=== PATIENT | female | born 2000 | race Hispanic/Latino ===

== ENCOUNTER 2020-04-05 20:43 | Inpatient (IN) | payer OTHER, SELFPAY ==
[2020-04-05] MEDS ORDERED: Famotidine/PF 20 mg/2ml Vial SLOW IVP PRN (21:41)
[2020-04-05] MEDS ORDERED: Bicitra 30 ML UDCUP PO PRN (21:41)
[2020-04-05] MEDS ORDERED: Ondansetron PF 4 MG/2 ML Vial IVP PRN (21:41)
[2020-04-05] MEDS ORDERED: Promethazine HCl 25 MG/ML VIAL IM PRN (21:41)
[2020-04-05] MEDS ORDERED: Meperidine HCl/PF 25 MG/ML VIAL IM/IV PRN (21:41)
[2020-04-05] MEDS ORDERED: Docusate 100 MG CAP PO PRN (21:41)
[2020-04-05] MEDS ORDERED: hydrALAZINE 20 MG/ML VIAL SLOW IVP PRN (21:41)
[2020-04-05] MEDS ORDERED: Butorphanol Tartrate 1 MG/ML VIAL SLOW IVP PRN (21:41)
[2020-04-05] MEDS ORDERED: Acetaminophen 500 MG TAB PO PRN (21:41)
[2020-04-05] MEDS ORDERED: CEFAZOLIN 2 GM in Premix Bag 1 BAG IVPB SCH ×2 (21:45→21:49)
[2020-04-05 22:00] VITALS: BMI 29.0
--- NOTE | 2020-04-05 22:04 | PDOC.FPROB ---
FMR OB H&P: HPI - History of Present Illness Chief Complaint: oligohydramnios History of Present Illness: Pt is a 19 yo F at 36 wks by a 8 wk sono who presents from appointment today with MFM for oligohydramnios with an VINOD of 2.7. Pt denies any leaking of fluid, VB, VD, regular contractions. Endorses good movement. Patient was noted to be breech at her appointment. 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 and obesity in Primary Care Physician: NAOMI Ludwig FMR OB H&P: Current - Care : 1 Para: 0 Gestational age: 36wks Due date: 05/03/20 Dating Criteria: 8 wk sono Course/Complications: VINOD 2.7, breech, White Class B on Metformin 1000mg BID, obesity in , elevated LFTs, growth restriction- stable, [place] 16 - OB Labs Blood type: A RH: positive Antibody Screen: negative HIV: negative RPR: negative HepBsAg: negative Rubella: immune Gonorrhea: negative Chlamydia: negative A1c: 5.6% most recent GBS: positive - Additional Ultrasound Additional: Most recent sono results not available as was done earlier today with MFM FMR OB H&P: History - Past Medical History PMH: pre gestational diabetes on Metformin - OB History OB History: G1 VINOD 2.7: oligo breech White Class B on Metformin 1000mg BID obesity in growth restriction on previous sono (not most recent, see above)- stable, [place] 16% - GRAN[facility] CUTTER History GR[facility] CUTTER History: LMP 07/16/19 denies hx of STDs - Surgical History Sx History: denies - Social History Social History: denies - Family History Family History: non contributory as per patient FMR OB H&P: Medications - Current Home Medications: Medication Instructions Recorded Confirmed Type Pnv No.95/Ferrous Fum/Folic AC 1 each PO 04/05/20 History [ [place]] metFORMIN HCl 1,000 mg PO BID-WM 04/05/20 04/05/20 History Allergies/Adverse Reactions: Allergies Allergy/AdvReac Type Severity Reaction Status Date / Time No Known Allergies Allergy Verified 04/05/20 22:59 FMR OB H&P: ROS - Review of Systems General: denies: fever/chills, weight/appetite/sleep changes Eyes: denies: vision changes, double vision Cardiovascular: denies: chest pain, palpitation, edema Respiratory: denies: cough, shortness of breath Gastrointestinal: denies: abdominal pain, nausea, vomiting Genitourinary (Female): denies: dysuria, vaginal discharge, vaginal pain, vaginal bleeding, contractions, vaginal pressure Neurologic: denies: weakness, loss of counsciousness, headache Integumentary: denies: rash FMR OB H&P: Vital Signs - Heart Tones Baseline: 140 Variability: moderate Acceleration: present Deceleration: absent Category: category 1 [place] contractions every: irritability FMR OB H&P: Physical Exam - Physical Exam General: NAD, awake, alert and oriented HEENT: normocephalic and atraumatic, EOMI, conjunctiva clear, grossly normal vision, grossly normal hearing Neck: supple Chest: non-tender to palpation Heart: RRR, normal S1/S2 General: CTAB, no respiratory distress Abdomen: soft, gravid Musculoskeletal: pulses present, FROM in all four extremities Neurological: cranial nerves II through XII intact Skin: no rash, good tugor Lymphatic: no unusual bruising or bleeding Psychiatric: intact recent and remote memory, good judgement and insight - Pelvic Exam Membranes: intact Presentation: breech FMR OB H&P: A/P Disposition: Pt is a 19 yo F at 36 wks by a 8 wk sono who presents from appointment today with [facility] for oligohydramnios with an VINOD of 2.7. #Oligohydramnios -VINOD of 2.7 at [facility] appointment today -follow up with official report from appointment -continuous monitoring -q4H check of strip until c section -plan for c section tomorrow morning #White Class B Diabetic -hold morning Metformin -ACCU check in AM -continue ACCU checks fasting and 2 hr PP Discussion: Date/Time: 04/05/202203 This H&P was discussed with Dr. Veronica and Dr. Hoffman who agree with the above documentation and plan. Addendum - Attending - Attending Attestation Date/Time: 04/05/20 2807 I personally evaluated the patient and discussed the management with Dr. Luo I agree with the History, Examination, Assessment and Plan documented above with any addition or exceptions noted below. Admit for monitoring and delivery. complicated by pre-gestation White Class B DM, oligohydraminos, and growth restriction. Breech presentation. Unable to perform ECV. Due to late gestation and lack of 48 hour timing will hold FLM steroids 2/2 John as well as maternal DM history. PLTCS scheduled for AM. Juan
[2020-04-05 22:33] LABS: #Eosinphils 0.1 thou/uL (0.0-0.7); #Lymphocytes 1.4 thou/uL (1.20-3.40); #Monocytes 0.5 thou/uL (0.11-0.59); #Neutrophils 6.9 thou/uL (1.40-6.50); %Basophils 0.5 % (0.0-1.0); %Eosinophils 0.7 % (0.0-10.0); %Lymphocytes 16.1 % (28.0-48.0); %Monocytes 5.5 % (0.0-4.0); %Neutrophils 77.2 % (31.0-61.0); Hemoglobin 13.1 g/dL (12.0-16.0); Mean Corpuscular HGB CONC 33.9 g/dL (32.0-36.0); Mean Corpuscular Hemoglobin 29.4 pg (25.0-35.0); Mean Corpuscular Volume 86.7 fL (78.0-98.0); Mean Platelet Volume 9.7 fL (7.4-10.4); Platelet Count 278 thou/uL (130-400); Red Blood Cell (RBC) Count 4.45 mill/uL (4.00-5.20)
[2020-04-05 22:55] LABS: ALT (SGPT) 53 U/L (8-55); AST (SGOT) 22 U/L (5-30); Albumin 3.6 g/dL (3.5-5.0); Alkaline Phosphatase 177 U/L (40-100); Anion Gap 20 mmol/L (10-20); BUN (Urea Nitrogen) 7 mg/dL (8.4-21.0); Bilirubin, Total 0.3 mg/dL (0.2-1.2); Calc. Creatinine Clearance 166 mL/min (70-130); Calcium 9.2 mg/dL (7.8-10.44); Carbon Dioxide 20 mmol/L (22-29); Chloride 104 mmol/L (98-107); Globulin 3.6 g/dL (2.4-3.5); Glucose 77 mg/dL (70-105); Potassium 3.7 mmol/L (3.5-5.1); Protein, Total 7.2 g/dL (6.0-8.3); Sodium 140 mmol/L (136-145)
[2020-04-05 23:13] LABS: Syphilis Antibody Nonreactive (Nonreactive); Syphilis Antibody Index 0.04 S/CO (<1.00 Non-Reactive)
[2020-04-05] MEDS ORDERED: Lidocaine 1% (PF) 30 ML VIAL ONE (23:40)
[2020-04-05] MEDS ORDERED: Misoprostol 200 MCG TAB ONE (23:41)
[2020-04-05] MEDS ORDERED: Lactated Ringer's 1,000 ML IV SCH (23:45)
[2020-04-05 23:51] LABS: HBSAg Index 0.22 S/CO (0-0.99); Hep B Surf Ag Non-Reactive S/CO (NonReactive)
[2020-04-06 00:02] LABS: Creatinine, Urine 57.73 mg/dL (47-110); Protein, Urine Random Quant Less than 10 mg/dL (1-14)
[2020-04-06] MEDS: Lactated Ringer's 1,000 ML IV SCH (00:03)
--- NOTE | 2020-04-06 00:52 | PDOC.BPN ---
- Brief Progress Note Encounter Date: 04/06/20 Encounter Time: 12:30 Patient doing well, resting comfortably. Strip reviewed: cat 1 strip baseline at 140 bpm with + accels and moderate variability. [place] showed variability. Have not been able to review most updated note from [facility] visit yesterday as it is not updated in patient's chart yet. Pre-E labs negative. Will hold AM Metformin and ACCU check in AM. Plan for c section later this morning Continue monitoring. Plan discussed with Dr. Hoffman.
--- NOTE | 2020-04-06 03:44 | PDOC.BPN ---
- Brief Progress Note Encounter Date: 04/06/20 Encounter Time: 03:45 Patient doing well, resting comfortably. Strip reviewed: cat 1 strip baseline at 140 bpm with + accels and moderate variability. [place] showed irritability. Endorses movement, no LOF/VB/VD. Plan for c section later this morning. Continue monitoring. Plan discussed with Dr. Hoffman.
[2020-04-06 06:56] LABS: SARS-CoV-2 MS2 Positive; SARS-CoV-2 N Gene Positive; SARS-CoV-2 S Gene Positive; SARS-CoV-2 by NAA DETECTED (NotDetected); SARS-CoV-2 orf1ab Positive
--- NOTE | 2020-04-06 07:27 | PDOC.BPN ---
- Brief Progress Note Encounter Date: 04/06/20 Encounter Time: 07:05 FHT reviewed: Cat 1 strip, moderate variability, accels present, baseline 135 Krebs, no cxns seen Reassuring strip. Plan for within in the next hour. Of note, pt was incidentally found to be COVID + upon admission screening. Will place precaut ions for duration of stay.
[2020-04-06] MEDS ORDERED: Ondansetron PF 4 MG/2 ML Vial ONE (07:35)
[2020-04-06] MEDS ORDERED: Famotidine/PF 20 mg/2ml Vial ONE (07:35)
[2020-04-06] MEDS ORDERED: Scopolamine 1.5 mg/72 hour Patch ONE (07:36)
--- NOTE | 2020-04-06 07:52 | PDOC.OPDEL ---
OB Operative/Delivery Note Delivery Dr/Surgeon: Oziel Assist: Ashley - Additional Findings/Plan Compilations/Other Findings: Procedure Note Date of Procedure: 04/06/2020 Resident Surgeon: Dr. Era Ludwig MD PGY2 [employer] Manager Surgeon: Dr. Lorne Ramirez DO PGY2 Attending Surgeon: Dr. Coughlin Procedure: Primary low transverse caesarean section Preoperative Diagnosis: 1) 2) White Class B Diabetes Mellitus 3) Obesity 4) Transaminitis 5) growth restriction Postoperative Diagnosis: 1)same as above plus any other findings during surgery Anesthesia: spinal Indications: The patient is a 19 year old G1 Female at 36.1 weeks gestation who presents for a scheduled . Procedure in Detail: After risks, benefits, and alternatives were explained to the patient, she gave informed consent. Pre-operative antibiotics included Cefazolin 2 gram IV. The patient was taken to the operating room and spinal anesthesia was initiated. She was placed in the supine position with a left tilt and prepped and draped in usual sterile fashion. A Pfannenstiel incision was made with a scalpel and carried down to the level of the fascia which was sharply nicked. The fascial cut was extended bilaterally with Velasco sissors. The inferior and superior edges of the cut fascial edges were elevated with Zeke clamps and the underlying rectus muscles were sharply and bluntly dissected free. The recti were divided digitally and retracted manually. The peritoneum was entered with velasco scissors after elevating with hemostats and retracted manually. Bladder blade was placed. A low transverse score was made with the scalpel and the uterus was entered in the midline with the scalpel. Clear fluid was seen. The hysterotomy was extended manually. The infant was noted to be breech and was easily delivered by fundal pressure with breech maneuvers. Mouth and nares were bulb suctioned. Cord clamped and cut and grossly normal male was handed to waiting nurse. Cord blood was obtained. Placenta was manually extracted, found to be intact with 3 vessel cord and discarded. The uterus was externalized and the endometrium was curetted with a dry lap. The bladder blade was replaced and the uterus was closed with a running locking #1 monocryl. Following this hemostasis was noted. The abdomen was suctioned free of clots. The uterus was internalized and the hysterotomy was again noted to be hemostatic. The peritoneum was closed with 2-0 chromic gut. The fascia was closed with a running non-locking 0-PDS suture. The subcutaneous tissue was irrigated and there were no bleeders. The subcutaneous tissue was closed wit 2-0 chromic gut. The skin was approximated with brain and a pressure dressing was placed. All counts were correct. The patient tolerated the procedure well and was taken to the recovery room in stable condition. QBL Pending. Complications: None Specimens: Cord blood sent to lab for blood type. Placenta sent for path. Findings: Grossly normal male with apgars of 8/9. Grossly normal placenta with 3 vessel cord discarded. Drains: Rodas to gravity draining clear urine Antonio SHEPARD PGY2
[2020-04-06] MEDS ORDERED: Morphine PF 10 MG/10 ML VIAL ONE (07:54)
[2020-04-06] MEDS ORDERED: Oxytocin 10 UNITS/ML VIAL ONE ×2 (07:55→08:50)
[2020-04-06] MEDS ORDERED: Promethazine HCl 25 MG/ML VIAL ONE (08:43)
[2020-04-06] MEDS ORDERED: diphenhydrAMINE 50 MG/ML VIAL IVP PRN (09:25)
[2020-04-06] MEDS ORDERED: Meperidine HCl/PF 25 MG/ML VIAL SLOW IVP PRN (09:25)
[2020-04-06] MEDS ORDERED: HYDROmorphone 2 MG/ML VIAL SLOW IVP PRN (09:25)
[2020-04-06] MEDS ORDERED: Naloxone HCl 0.4 mg/ml Vial IVP PRN ×2 (09:25)
[2020-04-06] MEDS ORDERED: Ondansetron HCl/PF 4 MG/2 ML Vial IVP PRN (09:25)
[2020-04-06] MEDS ORDERED: Promethazine HCl 25 MG SUPP PR PRN (09:25)
[2020-04-06] MEDS ORDERED: Ondansetron PF 4 MG/2 ML Vial IVP PRN ×2 (09:25→11:39)
[2020-04-06] MEDS ORDERED: Ketorolac Tromethamine 30 MG/ML VIAL IVP PRN (09:25)
[2020-04-06] MEDS ORDERED: Promethazine HCl 25 MG/ML VIAL IM PRN (09:25)
[2020-04-06] MEDS ORDERED: Naloxone HCl 0.4 mg/ml Vial IV PRN (09:25)
[2020-04-06] MEDS ORDERED: L&D-Morphine 4 MG/ML VIAL SLOW IVP PRN (09:25)
[2020-04-06] MEDS ORDERED: Ketorolac Tromethamine 30 MG/ML VIAL IVP SCH (09:30)
[2020-04-06] MEDS ORDERED: Communication Order-Pharmacy FS SCH (09:30)
[2020-04-06] MEDS ORDERED: Acetaminophen 325 MG TAB PO PRN (11:39)
[2020-04-06] MEDS ORDERED: Lanolin Ointment 7 GM TUBE TOP PRN (11:39)
[2020-04-06] MEDS ORDERED: hydrALAZINE 20 MG/ML VIAL SLOW IVP PRN (11:39)
[2020-04-06] MEDS ORDERED: HYDROcodone/Acetaminophen 5/325 mg Tablet PO PRN (11:39)
[2020-04-06] MEDS ORDERED: Simethicone Chewable 80 MG TAB PO PRN (11:39)
[2020-04-06] MEDS ORDERED: diphenhydrAMINE 25 MG CAP PO PRN (11:39)
--- NOTE | 2020-04-06 12:24 | PDOC.BPN ---
- Brief Progress Note Encounter Date: 04/06/20 Encounter Time: 11:30 Subjective: Doing well, 3 hours s/p . Able to move legs, still no sensation. ad alberto. Denies pain, chest pain, shortness of breath, abdominal pain. Objective: QBL @ time of assessment 433mL. Selected Entries 04/06/20 12:15 Temperature 97.6 F Pulse Rate 69 Blood Pressure 109/61 [Semi-Fowlers] Respiratory 16 Rate O2 Sat by Pulse 98 Oximetry Oxygen Delivery Room Air Method Abdomen soft, non tender, dressing clean and dry. A/P: S/p 04/06 (ppd #0) - routine recovery Class B DM - ACHS accuchecks. Will resume metformin tomorrow. Antonio SHEPARD PGY2
[2020-04-06] MEDS ORDERED: Dextrose 50% Abboject 50 ML SYRINGE SLOW IVP PRN (12:27)
[2020-04-06] MEDS ORDERED: Dextrose 5% in Water 1,000 ML IV PRN (12:27)
[2020-04-06] MEDS: Ibuprofen 800 MG TAB PO SCH ×2 (18:35→21:35)
[2020-04-06] MEDS: Docusate Calcium (SURFAK) 240 MG CAP PO SCH (21:35)
[2020-04-07] MEDS: Ibuprofen 800 MG TAB PO SCH ×3 (05:10→21:15)
--- NOTE | 2020-04-07 06:45 | PDOC.PP ---
Post Progress Note Post Day #: 1 Subjective: Doing well this morning. Pain is well controlled. PO intake tolerated: yes Flatus: yes Ambulation: yes Vital Signs (12 hours) Temp Pulse Resp BP Pulse Ox 04/07/20 04:00 97.8 F 52 L 16 104/53 L 98 04/07/20 00:00 67 18 107/54 L 96 04/06/20 20:00 98.4 F 61 16 115/60 97 Weight Weight 74.389 kg - Physical Examination General: NAD Cardiovascular: no m/r/g, RRR Respiratory: clear to auscultation bilaterally, non-labored breathing Abdominal: + bowel sounds, lochia, no distention, appropriately TTP Extremities: negative homans (B) Skin: CS incision dry & intact, no rash Neurological: no gross focal deficits Psychiatric: A&Ox3, normal affect Result Diagrams: 04/05/20 22:20 04/05/20 22:20 Additional Labs: Post Labs Hep Bs Antigen Non-Reactive S/CO (NonReactive) 04/05/20 22:20 Blood Type A POSITIVE 04/05/20 22:58 (1) delivery, delivered Code(s): O60.10X0 - LABOR W DELIVERY, UNSP TRIMESTER, UNSP S tatus: Acute (2) Oligohydramnios delivered Code(s): O41.00X0 - OLIGOHYDRAMNIOS, UNSP TRIMESTER, NOT APPLICABLE OR UNSP Status: Acute (3) S/P primary low transverse Code(s): Z98.891 - HISTORY OF UTERINE SCAR FROM PREVIOUS SURGERY Status: Acute (4) Pregestational diabetes mellitus, modified White class B Code(s): O24.319 - UNSP PRE-EXISTING DIABETES IN , UNSP TRIMESTER Status: Acute (5) affected by growth restriction Code(s): O36.5990 - MATERN CARE FOR OTH OR SUSP POOR FETL GRTH, UNSP TRI, UNSP Status: Acute - Assessment/Plan day 1, s/p pLTCS - Routine recovery. Scheduled ibuprofen, prn [place]. - Encouraged ambulation today and bonding with baby. - h&h pending this morning. - pp contraception - 1 week f/u @ [facility] Maternal h/o growth restriction and oligohydramnios Pregestational type II DM, Class B diabetes - was on Metformin 500mg BID for 2 months prior to and increased to 1000 mg BID during . - restart metformin 1000 BID today. Will need f/u with PCP outpatient after discharge. Antonio SHEPARD PGY2
[2020-04-07] MEDS: metFORMIN 500 MG TAB PO SCH ×2 (08:10→17:54)
[2020-04-07] MEDS: Prenatal Vitamin 1 TAB PO SCH (08:10)
[2020-04-07] MEDS: Docusate Calcium (SURFAK) 240 MG CAP PO SCH ×2 (08:10→21:16)
[2020-04-07] MEDS: HYDROcodone/Acetaminophen 5/325 mg Tablet PO PRN ×2 (08:11→13:54)
[2020-04-07] MEDS ORDERED: Adacel (T-DAP) 0.5 ML SYRINGE IM ONE (11:39)
[2020-04-07 11:54] LABS: Hemoglobin 10.5 g/dL (12.0-16.0); Mean Corpuscular HGB CONC 33.9 g/dL (32.0-36.0); Mean Corpuscular Hemoglobin 29.4 pg (25.0-35.0); Mean Corpuscular Volume 86.7 fL (78.0-98.0); Mean Platelet Volume 8.4 fL (7.4-10.4); Platelet Count 219 thou/uL (130-400); Red Blood Cell (RBC) Count 3.56 mill/uL (4.00-5.20); White Blood Cell (WBC) Count 6.6 thou/uL (4.8-10.8)
[2020-04-08] MEDS: Ibuprofen 800 MG TAB PO SCH ×2 (05:43→14:39)
--- NOTE | 2020-04-08 07:15 | PDOC.PP ---
Post Progress Note Post Day #: 2 Subjective: Doing well. Breast feeding and pumping. States she isn't getting anything out with pumping. PO intake tolerated: yes Flatus: yes Ambulation: yes Vital Signs (12 hours) Temp Pulse Resp BP BP Pulse Ox 04/08/20 03:20 98.1 F 63 18 116/58 L 97 04/08/20 00:00 97.9 F 62 18 116/62 99 04/07/20 20:00 98.2 F 69 18 119/58 L 100 Weight Weight 74.389 kg - Physical Examination General: NAD Cardiovascular: no m/r/g, RRR Respiratory: clear to auscultation bilaterally, non-labored breathing Abdominal: + bowel sounds, lochia, no distention, appropriately TTP Skin: CS incision dry & intact, no rash Psychiatric: A&Ox3, normal affect Result Diagrams: 04/07/20 11:38 04/05/20 22:20 Additional Labs: Post Labs Hep Bs Antigen Non-Reactive S/CO (NonReactive) 04/05/20 22:20 Blood Type A POSITIVE 04/05/20 22:58 (1) delivery, delivered Code(s): O60.10X0 - LABOR W DELIVERY, UNSP TRIMESTER, UNSP Status: Acute (2) Oligohydramnios delivered Code(s): O41.00X0 - OLIGOHYDRAMNIOS, UNSP TRIMESTER, NOT APPLICABLE OR UNSP Status: Acute (3) S/P primary low transverse Code(s): Z98.891 - HISTORY OF UTERINE SCAR FROM PREVIOUS SURGERY Status: Acute (4) Pregestational diabetes mellitus, modified White class B Code(s): O24.319 - UNSP PRE-EXISTING DIABETES IN , UNSP TRIMESTER Status: Acute (5) affected by growth restriction Code(s): O36.5990 - MATERN CARE FOR OTH OR SUSP POOR FETL GRTH, UNSP TRI, UNSP Status: Acute - Assessment/Plan day 1, s/p pLTCS - Routine recovery. Scheduled ibuprofen, prn [place]. - Encouraged ambulation today and bonding with baby. - h&h stable - pp contraception - unsure. Recommended abstinence for 6 weeks and will discuss at pp visit. - 1 week f/u @ [facility] Maternal h/o growth restriction and oligohydramnios Pregestational type II DM, Class B diabetes - was on Metformin 500mg BID for 2 months prior to and increased to 10 00 mg BID during . - Will resume Metformin 500mg BID on d/c and recommend f/u with PCP in 6 weeks. - Gave information for [facility] as she states she does not have a pcp. Antonio SHEPARD PGY2
[2020-04-08] MEDS: Lactated Ringer's 1,000 ML IV SCH (07:32)
[2020-04-08] MEDS ORDERED: metFORMIN 500 MG TAB PO SCH (08:00)
[2020-04-08 08:12] VITALS: BP 131/66; TEMP 98.6
[2020-04-08] MEDS: Prenatal Vitamin 1 TAB PO SCH (09:31)
[2020-04-08] MEDS: Docusate Calcium (SURFAK) 240 MG CAP PO SCH (09:31)
--- NOTE | 2020-04-11 22:33 | PQF ---
CLINICAL DOCUMENTATION CLARIFICATION FORM: Dear : Malissa Hoffman Date / Time: 04/11/2020 22:32 Please exercise your independent, professional judgment in responding to the clarification form. Clinical indicators are provided on the bottom of this form for your review COVID 19 Clarification and Manifestations: Please check appropriate box(es): A. COVID 19 virus diagnosis Validation: [ x] COVID-19 is ruled in (if so, please provide the evidence used to support this diagnosis) [ ] COVID-19 has been ruled out [ ] Other explanation of clinical findings [ ] Unable to determine Physician Signature: Date/Time: For continuity of documentation, please document condition throughout progress notes and discharge summary. Thank You. To be completed by CDI/Coding staff for physician review: Present Clinical Indicators - Signs / Symptoms / Labs Results and Location in Medical Record [x] Covid+ OB DS 04/05 [x] patient was incidentally found to be Covid+ PN 04/06 [x] Temp=98.5 Pulse=73 Respi=20 EW=525/60 Vital Signs 04/06 [x] WBC: 04/05=9.0 04/07=6.6 Laboratory 04/05 [x] gSARS= detectedh Laboratory 04/05 Present Risk Factors Results and Location in Medical Record [x] 36 weeks gestation HP 04/05 [x] GDM HP 04/05 [x] Obesity HP 04/05 Present Treatments Results and Location in Medical Record [x] Laboratory Monitoring Labs 04/06 [x] IVF JUL 08 [x] Cefazolin 2gm IV JUL 08 CDS/Counter Control Operator Signature: Kelli Rosales Phone #: ext [phone] Date/Time: 04/11/2020 This is a permanent part of the Medical Record [facility]
== END 2020-04-08 15:06 | disposition home or self-care (01) | DRG 786 ==
LOC: L&D 20:43 → 3SW 04-06 11:39
PROVIDERS: ADMIT Family Medicine; ATTEND Family Medicine
PROC: 10D00Z1 Extraction of Products of Conception, Low, Open Approach (ICD-10-PCS; principal; 2020-04-06)
DX: O60.14X0 Preterm labor third trimester with preterm delivery third trimester, not applicable or unspecified (principal); U07.1 COVID-19; O41.03X0 Oligohydramnios, third trimester, not applicable or unspecified; O98.52 Other viral diseases complicating childbirth; Z3A.36 36 weeks gestation of pregnancy; Z37.0 Single live birth; O32.1XX0 Maternal care for breech presentation, not applicable or unspecified; O99.214 Obesity complicating childbirth; E66.9 Obesity, unspecified; O24.425 Gestational diabetes mellitus in childbirth, controlled by oral hypoglycemic drugs; R74.01 Elevation of levels of liver transaminase levels; O26.893 Other specified pregnancy related conditions, third trimester; O36.5930 Maternal care for other known or suspected poor fetal growth, third trimester, not applicable or unspecified
CPT/HCPCS: 36415; 36416; 51702; 80053; 82570; 84156; 85025; 85027; 86780; 86850; 86900; 86901; 87340; 87635; 88307; J0690; J2270; J2405; J2550; S0028; U0003

== ENCOUNTER 2023-01-29 20:54 | Emergency (ER) | payer SELFPAY ==
[2023-01-29] MEDS ORDERED: Insulin Regular 300 UNITS/3 ML VIAL ONE (21:36)
== END 2023-01-29 22:56 | disposition home or self-care (01) ==
LOC: ERS 20:54
DX: E11.65 Type 2 diabetes mellitus with hyperglycemia (principal); Z79.84 Long term (current) use of oral hypoglycemic drugs
CPT/HCPCS: 36416; 96361; 96374; 96376; J1815

== ENCOUNTER 2023-03-27 14:54 | Inpatient (IN) | payer SELFPAY ==
[~2023-03-27 14:54] MED LIST: Iopamidol-370 76% 500 ML MDV (1 ML CHARGE) ONE
[2023-03-27] MEDS ORDERED: Ondansetron PF 4 MG/2 ML Vial ONE (16:37)
[2023-03-27] MEDS ORDERED: Morphine 4 MG/ML VIAL ONE (16:43)
[2023-03-27 16:53] LABS: #Monocytes 0.9 thou/uL (0.11-0.59); #Neutrophils 17.6 thou/uL (1.40-6.50); %Basophils 0.2 % (0.0-1.0); %Lymphocytes 4.5 % (21.0-51.0); %Monocytes 4.5 % (0.0-10.0); %Neutrophils 90.1 % (42.0-75.0); Hemoglobin 13.8 g/dL (12.0-16.0); Mean Corpuscular HGB CONC 32.9 g/dL (32.0-36.0); Mean Corpuscular Hemoglobin 26.4 pg (27.0-31.0); Mean Corpuscular Volume 80.5 fl (78.0-98.0); Mean Platelet Volume 11.2 fL (7.4-10.4); Platelet Count 326 10x3/uL (130-400); RBC Distribution Width 14.6 % (11.5-14.5); Red Blood Cell (RBC) Count 5.22 mill/uL (4.20-5.40); White Blood Cell (WBC) Count 19.5 10x3/uL (4.8-10.8)
[2023-03-27 17:27] LABS: Albumin 4.3 g/dL (3.5-5.0)
[2023-03-27 17:29] LABS: ALT (SGPT) 46 U/L (8-55); Sodium 119 mmol/L (136-145)
[2023-03-27 17:30] LABS: Bilirubin, Total 0.6 mg/dL (0.2-1.2); Calcium 9.9 mg/dL (7.8-10.44); Chloride 93 mmol/L (98-107); Glucose 302 mg/dL (70-105); Potassium 4.2 mmol/L (3.5-5.1)
[2023-03-27 17:51] LABS: Globulin 7.3 g/dL (2.4-3.5); Protein, Total 11.3 g/dL (6.0-8.3)
[2023-03-27 17:53] LABS: Alkaline Phosphatase 83 U/L (40-110); Calc. Creatinine Clearance 0 mL/min (70-130); Estimated GFR 74
[2023-03-27 17:54] LABS: BUN (Urea Nitrogen) 6 mg/dL (7.0-18.7)
[2023-03-27 18:21] LABS: AST (SGOT) 22 U/L (5-34)
[2023-03-27 18:24] LABS: Carbon Dioxide Less than 8 mmol/L (22-29)
[2023-03-27 18:33] LABS: Bacteria/HPF None Seen HPF (None Seen); Bilirubin Negative (Negative); Blood, Urine 3+ (Negative); CAUTI Indications for Culture Dysuria,urgency,freq; Clarity Clear (Clear); Glucose, Urine (Dipstick) Greater than 1000 mg/dL (Negative); Ketone, Urine Greater than 150 mg/dL (Negative); Leukocyte Negative Leu/uL (Negative); Nitrite Negative (Negative); Pregnancy Test - Urine (BHCG) Negative (Negative); Pregu Control Background? CLEAR/WHITE (CLR/WHITE); Pregu Control Bar Appear? YES (CONTROL BAR); Protein, Urine (Dipstick) 70 mg/dL (Neg-Trace); RBC/HPF Greater than 50 HPF (0-3); Specific Gravity 1.023 (1.002-1.036); Specific Gravity, Urine 1.023 (1.002-1.036); Squamous Epithelial 0-3 HPF (0-3); Urobilinogen Normal mg/dL (Less than 2); WBC/HPF 0-3 HPF (0-3)
[2023-03-27 18:35] LABS: Urine Culture Reflex No No
[2023-03-27 18:55] LABS: Analyzer IN Cardio ER; Base Excess (BEa) -18.2 mEq/L (-2.0 to +3.0); Calcium, Ionized (arterial) 1.21 mmol/L (1.12-1.30); Carboxyhemoglobin (COHb) 0.1 gm% (0.0-3.0); Hematocrit-ABG 34 % (36.0-47.0); Hemoglobin (Hb) 11.7 g/dL (12.0-16.0); O2 Tension (PaO2), arterial 103.4 mmHg (80.0-100.0); Potassium - ABG Lab 4.14 mmol/L (3.70-5.30)
[2023-03-27 18:56] LABS: pH, Arterial 7.202 (7.35-7.45)
[2023-03-27 18:57] LABS: Actual Bicarbonate (HCO3a) 7.9 mEq/L (22-28); CO2 Tension 20.6 mmHg (35.0-45.0); Puncture Site RRA
[2023-03-27] MEDS ORDERED: Electrolyte Replacement Protocol 1 EACH IVPB SCH (20:10)
[2023-03-27] MEDS ORDERED: Acetaminophen 325 MG TAB PO PRN (20:10)
[2023-03-27] MEDS ORDERED: Sodium Chloride 0.9% 1,000 ML IV PRN ×4 (20:10)
[2023-03-27] MEDS ORDERED: Dextrose 5 %-0.45 % NaCl 1,000 ML IV PRN (20:10)
[2023-03-27] MEDS ORDERED: Acetaminophen 650 MG Suppository PR PRN (20:10)
[2023-03-27] MEDS ORDERED: NS 0.9% w/ 20 MEQ KCL 1,000 ML IV PRN (20:10)
[2023-03-27] MEDS ORDERED: Ondansetron PF 4 MG/2 ML Vial IVP PRN (20:10)
[2023-03-27] MEDS ORDERED: Dextrose 50% Abboject 50 ML SYRINGE SLOW IVP PRN (20:10)
[2023-03-27] MEDS ORDERED: Ondansetron ODT 4 MG TAB PO PRN (20:10)
[2023-03-27] MEDS ORDERED: Morphine 4 MG/ML VIAL SLOW IVP PRN (20:10)
[2023-03-27] MEDS ORDERED: INSULIN REGULAR IN 0.9 % NACL 100 UNITS/100 ML BAG ONE (20:11)
[2023-03-27 20:12] LABS: Lactic Acid 3.5 mmol/L (0.5-2.2)
[2023-03-27] MEDS ORDERED: HUMULIN R 100 UNITS in Sodium Chloride 0.9% 100 ML IVPB SCH (20:15)
[2023-03-27] MEDS ORDERED: Pantoprazole 40 MG VIAL IVP SCH (20:45)
[2023-03-27] MEDS: NS 0.9% w/ 20 MEQ KCL 1,000 ML IV PRN ×2 (21:11→23:12)
[2023-03-27 21:46] LABS: Anion Gap 18 mmol/L (10-20); BUN (Urea Nitrogen) 5 mg/dL (7.0-18.7); Calc. Creatinine Clearance 127 mL/min (70-130); Calcium 8.8 mg/dL (7.8-10.44); Chloride 103 mmol/L (98-107); Estimated GFR 107; Glucose 262 mg/dL (70-105); Potassium 4.1 mmol/L (3.5-5.1); Sodium 125 mmol/L (136-145)
[2023-03-27 21:53] LABS: Carbon Dioxide 8 mmol/L (22-29)
[2023-03-27 22:49] LABS: Triglycerides Greater than 3800 mg/dL (Less than 150)
[2023-03-27] MEDS: D5 1/2 NS w/20 mEq KCL 1,000 ML IV PRN (23:42)
[2023-03-27 23:46] LABS: Alcohol Less than 10.0 mg/dL (Less than 10)
[2023-03-28 00:59] LABS: Hemoglobin A1c 11.8 % (4.0-6.0)
[2023-03-28 01:25] LABS: BUN (Urea Nitrogen) 4 mg/dL (7.0-18.7); Calc. Creatinine Clearance 141 mL/min (70-130); Carbon Dioxide Less than 8 mmol/L (22-29); Chloride 112 mmol/L (98-107); Estimated GFR 121; Glucose 225 mg/dL (70-105); Potassium 4.2 mmol/L (3.5-5.1); Sodium 129 mmol/L (136-145)
[2023-03-28] MEDS: D5 1/2 NS w/20 mEq KCL 1,000 ML IV PRN ×2 (03:56→08:55)
[2023-03-28 06:42] LABS: #Monocytes 0.6 thou/uL (0.11-0.59); #Neutrophils 12.3 thou/uL (1.40-6.50); %Basophils 0.2 % (0.0-1.0); %Eosinophils 0.2 % (0.0-10.0); %Lymphocytes 7.1 % (21.0-51.0); %Monocytes 4.1 % (0.0-10.0); %Neutrophils 87.8 % (42.0-75.0); Hematocrit 35.6 % (36.0-47.0); Hemoglobin 11.2 g/dL (12.0-16.0); Mean Corpuscular HGB CONC 31.5 g/dL (32.0-36.0); Mean Corpuscular Hemoglobin 24.8 pg (27.0-31.0); Mean Corpuscular Volume 78.9 fl (78.0-98.0); Mean Platelet Volume 10.7 fL (7.4-10.4); Platelet Count 235 10x3/uL (130-400); RBC Distribution Width 14.7 % (11.5-14.5); Red Blood Cell (RBC) Count 4.51 mill/uL (4.20-5.40)
[2023-03-28 07:05] LABS: Anion Gap 10 mmol/L (10-20); BUN (Urea Nitrogen) 4 mg/dL (7.0-18.7); Calc. Creatinine Clearance 168 mL/min (70-130); Carbon Dioxide 13 mmol/L (22-29); Chloride 111 mmol/L (98-107); Estimated GFR 130; Glucose 199 mg/dL (70-105); Potassium 3.7 mmol/L (3.5-5.1); Sodium 130 mmol/L (136-145)
[2023-03-28 08:11] VITALS: BMI 28.7
[2023-03-28] MEDS: Pantoprazole 40 MG VIAL IVP SCH (08:51)
[2023-03-28] MEDS ORDERED: HUMULIN R 100 UNITS in Sodium Chloride 0.9% 100 ML IVPB SCH (11:45)
[2023-03-28 12:25] LABS: Glucose 159 mg/dL (70-105)
[2023-03-28] MEDS: Potassium Chloride 30 MEQ in Sodium Chloride 0.9% 1,000 ML IV SCH ×2 (13:04→13:07)
[2023-03-28 13:49] LABS: Glucose 118 mg/dL (70-105)
[2023-03-28 14:14] LABS: Glucose 111 mg/dL (70-105)
[2023-03-28 16:45] LABS: Glucose 115 mg/dL (70-105)
[2023-03-28 16:49] LABS: Anion Gap 11 mmol/L (10-20); BUN (Urea Nitrogen) Less than 4 mg/dL (7.0-18.7); Calc. Creatinine Clearance 201 mL/min (70-130); Calcium 8.3 mg/dL (7.8-10.44); Carbon Dioxide 14 mmol/L (22-29); Chloride 112 mmol/L (98-107); Estimated GFR 135; Glucose 116 mg/dL (70-105); Potassium 3.4 mmol/L (3.5-5.1); Sodium 134 mmol/L (136-145)
[2023-03-28] MEDS ORDERED: Potassium Chloride 20 MEQ in Lactated Ringer's 1,000 ML IV SCH (17:00)
[2023-03-28] MEDS ORDERED: Sodium Bicarb 50 MEQ/50 ML Abboject 8.4% SYRINGE IVP SCH (17:15)
[2023-03-28] MEDS: Potassium Chloride 20 MEQ in Premix 1 BAG IVPB SCH ×2 (17:28→20:35)
[2023-03-28 17:29] LABS: Glucose 137 mg/dL (70-105)
[2023-03-28] MEDS: Potassium Chloride 10 MEQ in Dextrose 5%-Lactated Ringers 1,000 ML IV SCH (17:42)
[2023-03-28 18:22] LABS: Glucose 218 mg/dL (70-105)
[2023-03-28 20:06] LABS: Glucose 203 mg/dL (70-105)
[2023-03-28] MEDS: Atorvastatin Calcium 20 MG TAB PO SCH (20:35)
[2023-03-28 21:09] LABS: Glucose 179 mg/dL (70-105)
[2023-03-28 22:57] LABS: Anion Gap 9 mmol/L (10-20); BUN (Urea Nitrogen) Less than 4 mg/dL (7.0-18.7); Calc. Creatinine Clearance 186 mL/min (70-130); Carbon Dioxide 21 mmol/L (22-29); Chloride 111 mmol/L (98-107); Estimated GFR 133; Glucose 142 mg/dL (70-105); Potassium 7.4 mmol/L (3.5-5.1); Sodium 134 mmol/L (136-145)
[2023-03-28 23:53] LABS: Anion Gap 10 mmol/L (10-20); BUN (Urea Nitrogen) Less than 4 mg/dL (7.0-18.7); Calc. Creatinine Clearance 205 mL/min (70-130); Calcium 8.2 mg/dL (7.8-10.44); Carbon Dioxide 21 mmol/L (22-29); Chloride 109 mmol/L (98-107); Estimated GFR 136; Glucose 130 mg/dL (70-105); Potassium 3.3 mmol/L (3.5-5.1); Sodium 137 mmol/L (136-145)
[2023-03-29] MEDS ORDERED: Potassium Chloride 20 MEQ in Premix 1 BAG IVPB SCH (00:15)
[2023-03-29 00:58] LABS: Glucose 124 mg/dL (70-105)
[2023-03-29 02:01] LABS: Glucose 164 mg/dL (70-105)
[2023-03-29 03:53] LABS: Glucose 189 mg/dL (70-105)
[2023-03-29] MEDS: Potassium Chloride 10 MEQ in Dextrose 5%-Lactated Ringers 1,000 ML IV SCH (04:05)
[2023-03-29 04:27] LABS: #Eosinphils 0.1 thou/uL (0.0-0.7); #Monocytes 0.3 thou/uL (0.11-0.59); #Neutrophils 6.5 thou/uL (1.40-6.50); %Basophils 0.2 % (0.0-1.0); %Eosinophils 0.6 % (0.0-10.0); %Lymphocytes 17.3 % (21.0-51.0); %Neutrophils 77.4 % (42.0-75.0); Hematocrit 31.2 % (36.0-47.0); Mean Corpuscular HGB CONC 32.1 g/dL (32.0-36.0); Mean Corpuscular Hemoglobin 24.6 pg (27.0-31.0); Mean Corpuscular Volume 76.8 fl (78.0-98.0); Mean Platelet Volume 10.5 fL (7.4-10.4); Platelet Count 180 10x3/uL (130-400); RBC Distribution Width 14.8 % (11.5-14.5); Red Blood Cell (RBC) Count 4.06 mill/uL (4.20-5.40); White Blood Cell (WBC) Count 8.3 10x3/uL (4.8-10.8)
[2023-03-29 04:57] LABS: Anion Gap 12 mmol/L (10-20); BUN (Urea Nitrogen) Less than 4 mg/dL (7.0-18.7); Calc. Creatinine Clearance 193 mL/min (70-130); Calcium 8.2 mg/dL (7.8-10.44); Carbon Dioxide 22 mmol/L (22-29); Chloride 107 mmol/L (98-107); Estimated GFR 134; Glucose 196 mg/dL (70-105); Potassium 3.5 mmol/L (3.5-5.1); Sodium 137 mmol/L (136-145)
[2023-03-29 05:42] LABS: Glucose 174 mg/dL (70-105)
[2023-03-29 06:30] LABS: Glucose 151 mg/dL (70-105)
[2023-03-29] MEDS ORDERED: Glucagon 1 MG/ML KIT IM PRN (07:50)
[2023-03-29] MEDS ORDERED: HumaLOG 300 UNITS/3 ML VIAL SC PRN (07:50)
[2023-03-29] MEDS ORDERED: Dextrose 5% in Water 1,000 ML IV PRN (07:50)
[2023-03-29] MEDS: Fenofibrate Nanocrystallized 145 MG TAB PO SCH (08:26)
[2023-03-29] MEDS: Pantoprazole 40 MG VIAL IVP SCH (08:26)
[2023-03-29] MEDS ORDERED: FLU VACC QS2023-24(6MOS UP)/PF 60 MCG/0.5 ML SYRINGE IM ONE (09:00)
[2023-03-29] MEDS ORDERED: Insulin Glargine 30 UNITS/0.3 ML VIAL SC SCH ×2 (09:00)
[2023-03-29 11:34] LABS: Glucose 190 mg/dL (70-105)
[2023-03-29] MEDS: 1/2 NS w/KCL 20 mEq 1,000 ML IV SCH ×2 (12:02→19:45)
[2023-03-29] MEDS: HumaLOG 300 UNITS/3 ML VIAL SC PRN ×2 (12:03→17:57)
[2023-03-29 13:55] LABS: Glucose 193 mg/dL (70-105)
[2023-03-29 14:21] LABS: Anion Gap 12 mmol/L (10-20); BUN (Urea Nitrogen) Less than 4 mg/dL (7.0-18.7); Calc. Creatinine Clearance 192 mL/min (70-130); Calcium 8.5 mg/dL (7.8-10.44); Carbon Dioxide 21 mmol/L (22-29); Chloride 106 mmol/L (98-107); Estimated GFR 133; Glucose 191 mg/dL (70-105); Potassium 3.4 mmol/L (3.5-5.1); Sodium 136 mmol/L (136-145)
[2023-03-29] MEDS ORDERED: Potassium Chloride 20 MEQ TAB PO SCH (15:45)
[2023-03-29] MEDS: Atorvastatin Calcium 20 MG TAB PO SCH (22:15)
[2023-03-30 00:33] LABS: Anion Gap 16 mmol/L (10-20); BUN (Urea Nitrogen) 5 mg/dL (7.0-18.7); Calc. Creatinine Clearance 200 mL/min (70-130); Calcium 8.5 mg/dL (7.8-10.44); Carbon Dioxide 19 mmol/L (22-29); Chloride 106 mmol/L (98-107); Estimated GFR 135; Glucose 213 mg/dL (70-105); Sodium 137 mmol/L (136-145)
[2023-03-30] MEDS: 1/2 NS w/KCL 20 mEq 1,000 ML IV SCH ×2 (02:15→04:34)
[2023-03-30 06:20] LABS: Hemoglobin A1c Greater than 14.0 % (4.0-6.0)
[2023-03-30 06:21] LABS: Anion Gap 13 mmol/L (10-20); BUN (Urea Nitrogen) 5 mg/dL (7.0-18.7); Calc. Creatinine Clearance 212 mL/min (70-130); Calcium 8.5 mg/dL (7.8-10.44); Carbon Dioxide 21 mmol/L (22-29); Chloride 105 mmol/L (98-107); Estimated GFR 137; Glucose 219 mg/dL (70-105); Lipase 179 U/L (8-78); Magnesium 1.6 mg/dL (1.6-2.6); Potassium 4.1 mmol/L (3.5-5.1); Sodium 135 mmol/L (136-145); Triglycerides 507 mg/dL (Less than 150)
[2023-03-30] MEDS ORDERED: Magnesium 2 GM/50 ML(in water) 2 GM in Premix 1 BAG IVPB SCH (07:30)
[2023-03-30] MEDS ORDERED: Insulin Glargine 30 UNITS/0.3 ML VIAL SC SCH (09:00)
[2023-03-30] MEDS: Fenofibrate Nanocrystallized 145 MG TAB PO SCH (09:55)
[2023-03-30] MEDS: Pantoprazole 40 MG VIAL IVP SCH (09:57)
[2023-03-30] MEDS: HumaLOG 300 UNITS/3 ML VIAL SC PRN (13:07)
[2023-03-30 14:39] LABS: Anion Gap 15 mmol/L (10-20); BUN (Urea Nitrogen) 6 mg/dL (7.0-18.7); Calc. Creatinine Clearance 157 mL/min (70-130); Calcium 8.6 mg/dL (7.8-10.44); Carbon Dioxide 21 mmol/L (22-29); Chloride 103 mmol/L (98-107); Estimated GFR 127; Glucose 260 mg/dL (70-105); Potassium 3.9 mmol/L (3.5-5.1); Sodium 135 mmol/L (136-145)
[2023-03-30] MEDS: HumuLIN 70/30 100 Unit/ ml 10 ml Vial SC SCH (18:21)
[2023-03-30] MEDS: Atorvastatin Calcium 20 MG TAB PO SCH (21:06)
[2023-03-30 22:58] LABS: Anion Gap 16 mmol/L (10-20); BUN (Urea Nitrogen) 9 mg/dL (7.0-18.7); Calc. Creatinine Clearance 160 mL/min (70-130); Calcium 9.4 mg/dL (7.8-10.44); Carbon Dioxide 19 mmol/L (22-29); Chloride 103 mmol/L (98-107); Estimated GFR 128; Glucose 193 mg/dL (70-105); Sodium 134 mmol/L (136-145)
[2023-03-31] MEDS: HumaLOG 300 UNITS/3 ML VIAL SC PRN (06:27)
[2023-03-31 06:56] LABS: Anion Gap 13 mmol/L (10-20); BUN (Urea Nitrogen) 8 mg/dL (7.0-18.7); Calc. Creatinine Clearance 165 mL/min (70-130); Calcium 8.8 mg/dL (7.8-10.44); Carbon Dioxide 24 mmol/L (22-29); Chloride 104 mmol/L (98-107); Estimated GFR 129; Glucose 219 mg/dL (70-105); Magnesium 1.7 mg/dL (1.6-2.6); Phosphorus 3.3 mg/dL (2.3-4.7); Potassium 4.2 mmol/L (3.5-5.1); Sodium 137 mmol/L (136-145); Triglycerides 480 mg/dL (Less than 150)
[2023-03-31] MEDS ORDERED: Electrolyte Replacement Protocol FS PRN (07:30)
[2023-03-31] MEDS ORDERED: Magnesium 2 GM/50 ML(in water) 2 GM in Premix 1 BAG IVPB SCH (07:30)
[2023-03-31 08:12] VITALS: BP 107/62; TEMP 97.6
[2023-03-31] MEDS: HumuLIN 70/30 100 Unit/ ml 10 ml Vial SC SCH (09:16)
[2023-03-31] MEDS: Pantoprazole 40 MG VIAL IVP SCH (09:16)
[2023-03-31] MEDS: Fenofibrate Nanocrystallized 145 MG TAB PO SCH (09:16)
== END 2023-03-31 11:28 | disposition home or self-care (01) | DRG 637 ==
LOC: ERS 14:54 → CCU 19:33 → T4-B 03-29 09:03
PROVIDERS: ADMIT Student in an Organized Health Care Education/Training Program; ATTEND Family Medicine
PROC: 4A033R1 Measurement of Arterial Saturation, Peripheral, Percutaneous Approach (ICD-10-PCS; principal; 2023-03-27)
DX: E11.10 Type 2 diabetes mellitus with ketoacidosis without coma (principal); K85.90 Acute pancreatitis without necrosis or infection, unspecified; E87.1 Hypo-osmolality and hyponatremia; E86.0 Dehydration; E78.1 Pure hyperglyceridemia; E66.01 Morbid (severe) obesity due to excess calories; Z68.29 Body mass index [BMI] 29.0-29.9, adult; Z79.84 Long term (current) use of oral hypoglycemic drugs; Z79.4 Long term (current) use of insulin; Z11.52 Encounter for screening for COVID-19
CPT/HCPCS: 36415; 36416; 36600; 74177; 76705; 80048; 80053; 80307; 81001; 81025; 82010; 82805; 83036; 83605; 83690; 83735; 83930; 84100; 84478; 85025; 87635; 87804; 93005; 96365; 96375; C9113; J1815; J2270; J2405; J3475; J3480; J3490; J7030; J7042; J7050; Q9967

== ENCOUNTER 2024-02-29 20:49 | Emergency (ER) | payer SELFPAY ==
[2024-02-29 21:12] LABS: Pregnancy Test - Urine (BHCG) Negative (Negative); Pregu Control Background? CLEAR/WHITE (CLR/WHITE); Pregu Control Bar Appear? YES (CONTROL BAR); Specific Gravity 1.045 (1.002-1.036)
[2024-02-29 21:14] LABS: Bacteria/HPF None Seen HPF (None Seen); Bilirubin Negative (Negative); Blood, Urine Negative (Negative); CAUTI Indications for Culture Pelvic or flank pain; Clarity Clear (Clear); Glucose, Urine (Dipstick) Greater than 1000 mg/dL (Negative); Ketone, Urine 10 mg/dL (Negative); Leukocyte Negative Leu/uL (Negative); Nitrite Negative (Negative); Protein, Urine (Dipstick) Negative (Neg-Trace); RBC/HPF 0-3 HPF (0-3); Specific Gravity, Urine 1.045 (1.002-1.036); Squamous Epithelial 0-3 HPF (0-3); Urine Culture Reflex No No; Urobilinogen Normal mg/dL (Less than 2); WBC/HPF 0-3 HPF (0-3); pH, Urine 7.5 (5.0-9.0)
[2024-02-29 21:39] LABS: #Basophils Less than 0.03 10x3/uL (0.0-0.2); %Basophils 0.3 % (0.0-1.0); %Eosinophils 1.3 % (0.0-10.0); %Lymphocytes 25.5 % (21.0-51.0); %Monocytes 5.3 % (0.0-10.0); %Neutrophils 67.1 % (42.0-75.0); Hematocrit 37.4 % (36.0-47.0); Hemoglobin 14.1 g/dL (12.0-16.0); Mean Corpuscular HGB CONC 37.7 g/dL (32.0-36.0); Mean Corpuscular Hemoglobin 31.9 pg (27.0-31.0); Mean Platelet Volume 11.7 fL (7.4-10.4); Platelet Count 232 10x3/uL (130-400); RBC Distribution Width 12.2 % (11.5-14.5); Red Blood Cell (RBC) Count 4.42 mill/uL (4.20-5.40)
[2024-02-29 21:43] LABS: ALT (SGPT) 35 U/L (8-55); AST (SGOT) 17 U/L (5-34)
[2024-02-29 21:45] LABS: Albumin 3.5 g/dL (3.5-5.0); Alkaline Phosphatase 79 U/L (40-110); Anion Gap 16 mmol/L (10-20); BUN (Urea Nitrogen) 10 mg/dL (7.0-18.7); Bilirubin, Total 0.2 mg/dL (0.2-1.2); Calc. Creatinine Clearance 0 mL/min (70-130); Carbon Dioxide 22 mmol/L (22-29); Chloride 97 mmol/L (98-107); Estimated GFR 108; Glucose 349 mg/dL (70-105); Lipase 50 U/L (8-78); Potassium 3.6 mmol/L (3.5-5.1); Protein, Total 8.1 g/dL (6.0-8.3); Sodium 131 mmol/L (136-145)
[2024-02-29] MEDS ORDERED: Morphine 4 MG/ML VIAL ONE ×2 (22:02→23:28)
[2024-02-29] MEDS ORDERED: Ondansetron PF 4 MG/2 ML Vial ONE (22:03)
[2024-02-29] MEDS ORDERED: Metoclopramide HCl 10 MG (2 mL) VIAL ONE (23:33)
== END 2024-03-01 01:17 | disposition home or self-care (01) ==
LOC: ERS 20:49
DX: R10.13 Epigastric pain (principal); E11.9 Type 2 diabetes mellitus without complications; Z79.84 Long term (current) use of oral hypoglycemic drugs; Z79.4 Long term (current) use of insulin
CPT/HCPCS: 36415; 74177; 80053; 81001; 81025; 83615; 83690; 85025; 96374; 96375; 96376; J2272; J2405; J2765; Q9967

== ENCOUNTER 2024-03-01 19:49 | Inpatient (IN) | payer SELFPAY ==
[2024-03-01 20:15] LABS: #Eosinophils Less than 0.03 10x3/uL (0.0-0.7); %Basophils 0.8 % (0.0-1.0); %Lymphocytes 6.5 % (21.0-51.0); %Monocytes 5.1 % (0.0-10.0); %Neutrophils 87.3 % (42.0-75.0); Hematocrit 47.7 % (36.0-47.0); Hemoglobin 17.4 g/dL (12.0-16.0); Mean Corpuscular HGB CONC 36.5 g/dL (32.0-36.0); Mean Corpuscular Hemoglobin 32.4 pg (27.0-31.0); Mean Corpuscular Volume 88.8 fL (78.0-98.0); Mean Platelet Volume 11.7 fL (7.4-10.4); Platelet Count 264 10x3/uL (130-400); RBC Distribution Width 12.9 % (11.5-14.5); Red Blood Cell (RBC) Count 5.37 mill/uL (4.20-5.40)
[2024-03-01] MEDS ORDERED: Ketorolac Tromethamine 30 MG (1 mL) VIAL ONE (20:38)
[2024-03-01] MEDS ORDERED: Ondansetron PF 4 MG/2 ML Vial ONE (20:38)
[2024-03-01 20:52] LABS: Base Excess -15.3 mEq/L (-2.0 to +3.0); Calcium, Ionized (venous) 1.14 mmol/L (1.16-1.32); Chloride (VBG) 102 mmol/L (98-106); Hematocrit-VBG 51 % (36.0-47.0); Hemoglobin (Hb) 17.2 g/dL (11.7-15.5); Potassium (VBG) 4.76 mmol/L (3.70-5.30); Sodium 132 mmol/L (133-146); pH (venous) 7.266 (7.32-7.43)
[2024-03-01 22:49] LABS: ALT (SGPT) 24 U/L (8-55); AST (SGOT) 20 U/L (5-34); Albumin 2.8 g/dL (3.5-5.0); Alkaline Phosphatase 59 U/L (40-110); Anion Gap 22 mmol/L (10-20); BUN (Urea Nitrogen) 8 mg/dL (7.0-18.7); Bilirubin, Total 0.4 mg/dL (0.2-1.2); Calc. Creatinine Clearance 0 mL/min (70-130); Calcium 8.1 mg/dL (7.8-10.44); Carbon Dioxide Less than 8 mmol/L (22-29); Chloride 106 mmol/L (98-107); Estimated GFR 106; Globulin 4.4 g/dL (2.4-3.5); Glucose 336 mg/dL (70-105); Potassium 4.1 mmol/L (3.5-5.1); Protein, Total 7.2 g/dL (6.0-8.3); Sodium 130 mmol/L (136-145)
[2024-03-01] MEDS ORDERED: INSULIN REGULAR IN 0.9 % NACL 100 ML ONE (23:01)
[2024-03-01] MEDS ORDERED: INSULIN REGULAR IN 0.9 % NACL 100 ML IVPB SCH (23:45)
[2024-03-01] MEDS ORDERED: Electrolyte Replacement Protocol 1 EACH IVPB SCH (23:48)
[2024-03-01] MEDS ORDERED: Dextrose 5 %-0.45 % NaCl 1,000 ML IV PRN (23:48)
[2024-03-01] MEDS ORDERED: Ondansetron PF 4 MG/2 ML Vial IVP PRN (23:48)
[2024-03-01] MEDS ORDERED: NS 0.9% w/ 20 MEQ KCL 1,000 ML IV PRN (23:48)
[2024-03-01] MEDS ORDERED: Sodium Chloride 0.9% 1,000 ML IV PRN ×3 (23:48)
[2024-03-02 00:50] LABS: Anion Gap 18 mmol/L (10-20); Phosphorus 2.1 mg/dL (2.3-4.7)
[2024-03-02 00:55] LABS: BUN (Urea Nitrogen) 7 mg/dL (7.0-18.7); Calc. Creatinine Clearance 0 mL/min (70-130); Calcium 8.1 mg/dL (7.8-10.44); Carbon Dioxide Less than 8 mmol/L (22-29); Chloride 110 mmol/L (98-107); Estimated GFR 108; Glucose 274 mg/dL (70-105); Magnesium 1.8 mg/dL (1.6-2.6); Potassium 4.3 mmol/L (3.5-5.1); Sodium 131 mmol/L (136-145)
[2024-03-02 01:14] LABS: Influenza A by NAA Not Detected (NotDetected); Influenza B by NAA Not Detected (NotDetected); SARS-CoV-2 NAA Rapid Test Not Detected (NotDetected)
[2024-03-02] MEDS ORDERED: Pantoprazole 40 MG VIAL ONE (01:54)
[2024-03-02] MEDS: Pantoprazole 40 MG VIAL IVP SCH ×2 (02:00→09:34)
[2024-03-02] MEDS: Sodium Chloride 0.9% 1,000 ML IV PRN (02:00)
[2024-03-02] MEDS ORDERED: Morphine 2 MG/ML VIAL ONE ×2 (02:07→08:17)
[2024-03-02] MEDS: Morphine 2 MG/ML VIAL SLOW IVP SCH ×2 (02:10→12:19)
[2024-03-02 04:54] LABS: Hemoglobin A1c 11.8 % (4.0-6.0)
[2024-03-02 05:15] LABS: Anion Gap 10 mmol/L (10-20); BUN (Urea Nitrogen) 7 mg/dL (7.0-18.7); Calc. Creatinine Clearance 152 mL/min (70-130); Calcium 7.7 mg/dL (7.8-10.44); Carbon Dioxide 14 mmol/L (22-29); Cardiac Risk 14.2 (Less than 4.5); Chloride 115 mmol/L (98-107); Cholesterol 256 mg/dl (< 200 Desired); Estimated GFR 125; Glucose 159 mg/dL (70-105); HDL Cholesterol 18 mg/dL (>60 Neg Risk); Lipase 124 U/L (8-78); Magnesium 1.8 mg/dL (1.6-2.6); Potassium 4.4 mmol/L (3.5-5.1); Sodium 135 mmol/L (136-145); Triglycerides 909 mg/dL (Less than 150)
[2024-03-02 05:26] LABS: #Basophils 0.03 10x3/uL (0.0-0.2); #Eosinophils Less than 0.03 10x3/uL (0.0-0.7); %Basophils 0.3 % (0.0-1.0); %Eosinophils 0.2 % (0.0-10.0); %Lymphocytes 9.4 % (21.0-51.0); %Monocytes 5.7 % (0.0-10.0); %Neutrophils 83.8 % (42.0-75.0); Hematocrit 38.3 % (36.0-47.0); Hemoglobin 13.1 g/dL (12.0-16.0); Mean Corpuscular HGB CONC 34.2 g/dL (32.0-36.0); Mean Corpuscular Hemoglobin 30.2 pg (27.0-31.0); Mean Corpuscular Volume 88.2 fL (78.0-98.0); Platelet Count 180 10x3/uL (130-400); RBC Distribution Width 12.8 % (11.5-14.5); Red Blood Cell (RBC) Count 4.34 mill/uL (4.20-5.40)
[2024-03-02] MEDS: Magnesium 2 GM/50 ML(in water) 2 GM in Premix 1 BAG IVPB SCH (05:30)
[2024-03-02] MEDS: NS 0.9% w/ 20 MEQ KCL 1,000 ML IV PRN (05:30)
[2024-03-02] MEDS ORDERED: Magnesium 2 GM/50 ML BAG (IN WATER) ONE (05:30)
[2024-03-02] MEDS: PHOS-NAK 1 PKT PACK PO SCH (05:30)
[2024-03-02] MEDS: D5 1/2 NS w/20 mEq KCL 1,000 ML IV PRN (06:20)
[2024-03-02] MEDS: Dextrose 50% Abboject 50 ML SYRINGE SLOW IVP PRN (06:20)
[2024-03-02] MEDS ORDERED: Dicyclomine 10 MG CAP PO PRN (07:24)
[2024-03-02 08:06] LABS: Anion Gap 12 mmol/L (10-20); BUN (Urea Nitrogen) 7 mg/dL (7.0-18.7); Calc. Creatinine Clearance 154 mL/min (70-130); Calcium 7.8 mg/dL (7.8-10.44); Carbon Dioxide 12 mmol/L (22-29); Chloride 114 mmol/L (98-107); Estimated GFR 125; Glucose 237 mg/dL (70-105); Potassium 4.4 mmol/L (3.5-5.1); Sodium 134 mmol/L (136-145)
[2024-03-02 08:11] VITALS: BMI 31.8
[2024-03-02] MEDS ORDERED: Enoxaparin 40 MG (0.4 mL) SYRINGE ONE (08:41)
[2024-03-02] MEDS ORDERED: Pantoprazole DR 40 MG TAB ONE (08:41)
[2024-03-02] MEDS ORDERED: Metoprolol Tartrate 50 MG TAB ONE (08:42)
[2024-03-02] MEDS: Enoxaparin 40 MG (0.4 mL) SYRINGE SC SCH (09:00)
[2024-03-02] MEDS: HumuLIN 70/30 100 Unit/ml 10 ml Vial SC SCH (12:10)
[2024-03-02] MEDS ORDERED: Glucagon 1 MG/ML KIT IM PRN (14:29)
[2024-03-02] MEDS ORDERED: Dextrose 5% in Water 1,000 ML IV PRN (14:29)
[2024-03-02] MEDS ORDERED: Dextrose 50% Abboject 50 ML SYRINGE SLOW IVP PRN (14:29)
[2024-03-02] MEDS ORDERED: Insulin Lispro 100 UNIT/ML 10 ML VIAL SC PRN (14:29)
[2024-03-02] MEDS ORDERED: Promethazine 25 MG TAB PO PRN (16:07)
[2024-03-02] MEDS: Sodium Chloride 0.9% 1,000 ML IV SCH ×2 (16:10→16:16)
[2024-03-02] MEDS: FLU (Fluarix Triv) TS24-25(6MOS UP)/PF 45 MCG/0.5 ML Syringe IM ONE (16:11)
[2024-03-02] MEDS: Insulin Lispro 100 UNIT/ML 10 ML VIAL SC PRN (16:16)
[2024-03-02] MEDS ORDERED: INSULIN LISPRO PROTAMINE SQ SCH (17:00)
[2024-03-02] MEDS ORDERED: INSULIN LISPRO SQ SCH (17:00)
[2024-03-02] MEDS ORDERED: [UNRECOGNIZED DRUG - OTHER] SQ SCH (17:00)
[2024-03-02] MEDS: Atorvastatin Calcium 20 MG TAB PO SCH (19:37)
[2024-03-02] MEDS: Acetaminophen 325 MG TAB PO PRN (19:37)
[2024-03-02 20:57] LABS: #Basophils 0.05 10x3/uL (0.0-0.2); #Eosinophils Less than 0.03 10x3/uL (0.0-0.7); %Basophils 0.4 % (0.0-1.0); %Eosinophils 0.1 % (0.0-10.0); %Lymphocytes 10.1 % (21.0-51.0); %Neutrophils 84.7 % (42.0-75.0); Hematocrit 36.7 % (36.0-47.0); Hemoglobin 12.7 g/dL (12.0-16.0); Mean Corpuscular HGB CONC 34.6 g/dL (32.0-36.0); Mean Corpuscular Hemoglobin 30.1 pg (27.0-31.0); Platelet Count 170 10x3/uL (130-400); RBC Distribution Width 13.2 % (11.5-14.5); Red Blood Cell (RBC) Count 4.22 mill/uL (4.20-5.40)
[2024-03-02 21:09] LABS: Lactic Acid 0.94 mmol/L (0.5-2.2)
[2024-03-02] MEDS: Cefepime 1 GM in Sodium Chloride 0.9% 100 ML IVPB SCH (21:10)
[2024-03-02 21:23] LABS: ALT (SGPT) 16 U/L (8-55); AST (SGOT) 21 U/L (5-34); Albumin 2.4 g/dL (3.5-5.0); Alkaline Phosphatase 58 U/L (40-110); Anion Gap 13 mmol/L (10-20); BUN (Urea Nitrogen) 6 mg/dL (7.0-18.7); Bilirubin, Total 0.7 mg/dL (0.2-1.2); Calc. Creatinine Clearance 188 mL/min (70-130); Calcium 8.2 mg/dL (7.8-10.44); Carbon Dioxide 15 mmol/L (22-29); Chloride 109 mmol/L (98-107); Estimated GFR 129; Glucose 197 mg/dL (70-105); Potassium 3.4 mmol/L (3.5-5.1); Protein, Total 6.4 g/dL (6.0-8.3); Sodium 134 mmol/L (136-145)
[2024-03-02 21:36] LABS: Bacteria/HPF None Seen HPF (None Seen); Bilirubin Negative (Negative); Blood, Urine Negative (Negative); CAUTI Indications for Culture Dysuria,urgency,freq; Clarity Clear (Clear); Glucose, Urine (Dipstick) >=1000 mg/dL (Negative); Ketone, Urine 60 mg/dL (Negative); Leukocyte 75 Leu/uL (Negative); Nitrite Negative (Negative); Protein, Urine (Dipstick) 30 mg/dL (Neg-Trace); RBC/HPF 0-3 HPF (0-3); Specific Gravity, Urine 1.013 (1.002-1.036); Squamous Epithelial 0-3 HPF (0-3); Urobilinogen Normal mg/dL (Less than 2)
[2024-03-02 21:37] LABS: Urine Culture Reflex No No
[2024-03-02] MEDS: Vancomycin (BATCH) 2 GM in Premix 1 BAG IVPB SCH (22:26)
[2024-03-03 05:37] LABS: #Basophils 0.04 10x3/uL (0.0-0.2); %Basophils 0.4 % (0.0-1.0); %Eosinophils 0.5 % (0.0-10.0); %Monocytes 4.6 % (0.0-10.0); %Neutrophils 78.8 % (42.0-75.0); Hematocrit 33.9 % (36.0-47.0); Hemoglobin 11.7 g/dL (12.0-16.0); Mean Corpuscular HGB CONC 34.5 g/dL (32.0-36.0); Mean Corpuscular Volume 86.9 fL (78.0-98.0); Mean Platelet Volume 11.3 fL (7.4-10.4); Platelet Count 168 10x3/uL (130-400); RBC Distribution Width 13.2 % (11.5-14.5)
[2024-03-03 06:09] LABS: Anion Gap 13 mmol/L (10-20); BUN (Urea Nitrogen) 5 mg/dL (7.0-18.7); Calc. Creatinine Clearance 198 mL/min (70-130); Carbon Dioxide 17 mmol/L (22-29); Chloride 107 mmol/L (98-107); Estimated GFR 131; Glucose 182 mg/dL (70-105); Magnesium 1.7 mg/dL (1.6-2.6); Potassium 3.2 mmol/L (3.5-5.1); Sodium 134 mmol/L (136-145)
[2024-03-03] MEDS: Magnesium 2 GM/50 ML(in water) 2 GM in Premix 1 BAG IVPB SCH (09:54)
[2024-03-03] MEDS: Potassium Chloride 20 MEQ TAB PO SCH (09:54)
[2024-03-03] MEDS: Vancomycin 1 GM in Premix 1 BAG IVPB SCH (10:35)
[2024-03-04 04:24] VITALS: TEMP 98
[2024-03-04 05:19] LABS: Anion Gap 9 mmol/L (10-20); BUN (Urea Nitrogen) 4 mg/dL (7.0-18.7); Calc. Creatinine Clearance 240 mL/min (70-130); Calcium 8.2 mg/dL (7.8-10.44); Carbon Dioxide 24 mmol/L (22-29); Chloride 108 mmol/L (98-107); Estimated GFR 137; Glucose 171 mg/dL (70-105); Sodium 138 mmol/L (136-145)
[2024-03-04 05:21] LABS: Vancomycin, Random 10.9 ug/mL (See Comment)
[2024-03-04 05:26] LABS: #Basophils Less than 0.03 10x3/uL (0.0-0.2); %Basophils 0.2 % (0.0-1.0); %Eosinophils 1.8 % (0.0-10.0); %Lymphocytes 30.7 % (21.0-51.0); %Monocytes 5.8 % (0.0-10.0); Hemoglobin 10.4 g/dL (12.0-16.0); Mean Corpuscular HGB CONC 33.5 g/dL (32.0-36.0); Mean Corpuscular Hemoglobin 29.4 pg (27.0-31.0); Mean Corpuscular Volume 87.6 fL (78.0-98.0); Mean Platelet Volume 10.9 fL (7.4-10.4); Platelet Count 168 10x3/uL (130-400); RBC Distribution Width 13.1 % (11.5-14.5); Red Blood Cell (RBC) Count 3.54 mill/uL (4.20-5.40)
[2024-03-04 08:35] VITALS: BP 124/85
[2024-03-04] MEDS: Potassium Chloride 20 MEQ TAB PO SCH (08:59)
[2024-03-10 09:40] LABS: Actual Bicarbonate (HCO3v) 8.9 mEq/L (22-28)
== END 2024-03-04 12:43 | disposition home or self-care (01) | DRG 638 ==
LOC: ERS 19:49 → ERHOLD 23:16 → T4-A 03-02 00:17
PROVIDERS: ADMIT Internal Medicine; ATTEND Hospitalist
DX: E11.10 Type 2 diabetes mellitus with ketoacidosis without coma (principal); K86.3 Pseudocyst of pancreas; E78.5 Hyperlipidemia, unspecified; F10.90 Alcohol use, unspecified, uncomplicated; D72.829 Elevated white blood cell count, unspecified; E87.6 Hypokalemia
CPT/HCPCS: 36415; 36416; 71045; 80048; 80053; 80061; 80202; 81001; 82010; 82465; 82805; 83036; 83605; 83690; 83735; 84100; 85025; 87040; 93005; 96374; 96375; J0692; J1650; J1815; J1885; J2272; J2405; J2470; J3370; J3370-JW; J3475; J3480; J7030; J7999